=== PATIENT | male | born 1945 | race Caucasian/White ===

== ENCOUNTER 2019-09-02 17:45 | Emergency (ER) | payer MEDICARE, OTHER, SELFPAY ==
[2019-09-02 17:48] VITALS: BP 133/85; PULSE 71; RESP 18; O2SAT 98; BMI 29.0
--- NOTE | 2019-09-02 17:58 | ED_ITS ---
Entered by Ilya Patel, acting as scribe for Faisal Peña DO HPI - Extremity Problem General: Chief complaint: Extremity Injury, Upper Stated complaint: LEFT RING FINGER ABNORMALITY/BREAK Time Seen by Provider: 09/02/19 17:57 History of Present Illness: HPI Narrative: 74 yo male presents with right fourth finger injury. Pt states that he fell down. Pt states that he hit his left knee. MD Complaint: extremity pain, extremity swelling and joint paint Onset (ago): hour(s) Pain Consistency: constant Location: right (right ring finger) Quality: sharp Relieving factors: nothing Associated symptoms: Reports no associated symptoms; Deny chest pain, fever(s) or rash Review of Systems Const: Denies: fever, chills, body aches, fatigue, malaise or night sweats Eyes: Denies: change in vision or blurry vision ENMT: Denies: throat pain, oral sores/lesions, dental pain, nasal discharge or nasal congestion Card: Denies: chest pain, palpitations, irregular heart rhythm, edema, syncope, shortness of breath on exertion, shortness of breath when lying down or leg pain with exertion Resp: Denies: shortness of breath, productive cough, non-productive cough or wheezing GI: Denies: abdominal pain, nausea, vomiting, vomiting blood, coffee grounds in vomit, difficulty swallowing, heartburn/indigestion, diarrhea, constipation, cramping, blood in stool or black tarry stool : Denies: flank pain, difficulty urinating, painful urination, urinary frequency, urinary urgency, urinary incontinence or blood in urine Musc: Denies: neck pain, back pain, extremity pain, extremity swelling, joint pain or joint swelling Skin/Breast: Denies: rash, itching or redness Neuro: Denies: headache, numbness in extremities, weakness in extremities, changes in sensation, lack of coordination, difficulty walking, frequent falls, dizziness, vertigo or confusion Psych: Denies: anxiety, depression, loss of interest, visual hallucinations, auditory hallucinations, suicidal ideation or homicidal ideation Endo: Denies: excessive urination, excessive thirst, tired all the time or cold intolerance Benedicto/Lymph: Denies: easy bruising, easy bleeding, petechiae, enlarged lymph nodes or tender lymph nodes PFS ED PFSH: Medical History Depression Emphysema/COPD Hyperlipidemia Hypertension Myalgia Osteoporosis Urinary retention Surgical History History of adenoidectomy Hx of tonsillectomy Social History Smoking and tobacco status: former smoker Physical Exam Const: COMMON NORMALS: average body habitus, oriented x3 and alert GENERAL APPEARANCE: cooperative, comfortable, well kempt and well developed NUTRITIONAL APPEARANCE: not obese ORIENTATION/CONSCIOUSNESS: Yes awake, Yes oriented to person and Yes oriented to place HENMT: COMMON NORMALS: normocephalic, head/scalp atraumatic, EAC's normal, TM's normal bilaterally, external nose normal, moist oral mucous membranes and oropharynx normal HEAD & SCALP: normocephalic and atraumatic NOSE: external nose normal EXTERNAL AUDITORY CANAL: EAC's normal TYMPANIC MEMBRANE: TM's normal bilaterally MOUTH: oral and palatal mucosa normal, lip normal and tongue normal THROAT: posterior oropharynx normal and tonsils normal Eye: COMMON NORMALS: PERRL, EOMs intact bilaterally, conjunctivae normal and no scleral icterus CONJUNCTIVA: Yes conjunctivae normal PUPIL: Yes PERRL Neck/C-Spine: COMMON NORMALS: full ROM, no lymphadenopathy, supple, no meningeal signs and thyroid normal THYROID: thyroid normal and asymmetrical Lymph: LYMPHATIC: no lymphadenopathy noted Resp: COMMON NORMALS: normal respiratory effort, no retractions, no use of accessory muscles and clear to auscultation bilaterally AUSCULTATION: clear to auscultation bilaterally Cardio: COMMON NORMALS: regular rate and regular rhythm RATE: regular rate RHYTHM: regular rhythm HEART SOUNDS: no murmurs GI: COMMON NORMALS: normal to inspection, nondistended, normoactive bowel sounds, soft to palpation and no hepatosplenomegaly PALPATION: Yes soft and Yes no hepatosplenomegaly : COMMON NORMALS: Yes no CVA tenderness BLADDER/KIDNEY EXAM: Yes no CVA tenderness Back/Pelvis: COMMON NORMALS: no CVA tenderness LUMBAR SPINE/LOWER BACK: Yes normal to inspection Extremity: OTHER: Deformity the right fourth finger consistent with disl ocation. Finger relocated x-ray shows no acute fracture. Fingers teressa taped to the third finger. Neuro: COMMON NORMALS: oriented x3 SENSORIUM/ORIENTATION: Yes alert, Yes oriented to person and Yes oriented to place MENINGEAL SIGNS: Yes no meningeal signs Psych: APPEARANCE: Yes well kempt Skin: COMMON NORMALS: no rashes or lesions noted and skin turgor normal GENERAL SKIN EXAM: no rashes or lesions noted and turgor normal Procedures Orthopedic Joint Reduction Joint #1: Time Out Performed: Yes Side: left Joint Reduction Location: finger (Left fourth finger) Technique used: direct manipulation Post-reduction neuro exam: intact Post-reduction vascular: intact Post Reduction X-Ray Obtained: Yes Post Reduction X-Ray Results: reduced Additional Comments: Teressa tape third and fourth fingers together. Course ED course: Finger reduced at the bedside with no difficulty. Patient given medications to return home but have teressa tape fingers the next days follow-up with his primary care doctor next week return if has problems. Primary care can refer to Ortho if patient has difficulty or persistent weakness. Vital Signs: Vital signs: Vital Signs Pulse Rate 71 09/02/19 17:48 Respiratory Rate 18 09/02/19 17:48 Blood Pressure 133/85 09/02/19 17:48 Pulse Oximetry 98 09/02/19 17:48 Discharge Plan Discharge Patient Disposition: Home, Self-Care Clinical Impression: Dislocation of finger Qualifiers: Encounter type: initial encounter Qualified Code(s): S63.259A - Unspecified dislocation of unspecified finger, initial encounter Condition: Stable Prescriptions: New diclofenac sodium 75 mg tablet,delayed release (DR/EC) 75 mg PO Q12H PRN (Reason: pain) Qty: 20 RF: 0 [place] 5-325 mg tablet 1 tab PO Q6H PRN (Reason: pain) Qty: 10 RF: 0 Discharge Orders: Discharge Order (Routine); Ordered 09/02/19 Ordered By: Faisal Peña Referrals: Bri Leon ARNP [Primary Care Provider] - Discharge Diet: Usual diet Discharge Activity: Resume usual activity Activity Restrictions/Additional Instructions: Teressa tape fingers follow-up with your primary care doctor in the next week Discharge Date/Time: 09/02/19 18:51 Coding Level of Care Code ED Video Tape Transferrer for Chg Fwd Exam Comprehensive The documentation recorded by the Jorge burrell Kialy, accurately reflects the service I personally performed and the decisions made by , Faisal Peña DO Sep 02, 2019 17:45
--- NOTE | 2019-09-02 18:14 | XR_ITS ---
WS: [id number] 3 views of the left fourth finger, 09/02/2019 Clinical Data: postreduction L 4th finger Comparison: None. Findings: No fractures or dislocations are seen. The soft tissues are normal. There is minimal periarticular ca lcification about the first IP joint. There is a small cyst of the head of the left fifth proximal ph alanx. Otherwise the joint spaces are not remarkable.. XR/XR finger LT min 2V [id number] Impression: Negative left fourth finger.
[2019-09-02] MEDS: HYDROcodone-acetaminophen 5-325 mg Tablet 1 TAB PO (18:34)
== END 2019-09-02 18:51 | disposition home or self-care (01) ==
PROVIDERS: Emergency Provider Family Medicine; Family Provider Nurse Practitioner Family; PCP Nurse Practitioner Family
DX: S63.255A Unspecified dislocation of left ring finger, initial encounter (principal); J43.9 Emphysema, unspecified; E78.5 Hyperlipidemia, unspecified; I10 Essential (primary) hypertension; W19.XXXA Unspecified fall, initial encounter
CPT/HCPCS: 26770; 73140; 99281; 99283

== ENCOUNTER 2021-07-10 12:59 | Outpatient (CLI) | payer MEDICARE, OTHER, SELFPAY ==
--- NOTE | 2021-07-10 | CT_ITS ---
WS: [id number] CT ABDOMEN PELVIS TECHNIQUE: Noncontrast CT of the abdomen and pelvis with coronal and sagittal reformatted images. CLINICAL INFORMATION: RIGHT KIDNEY PAIN COMPARISON: January 15, 2018 DLP: 1040.[address] scans at [facility] use at least one of these dose optimization techniques: automated e xposure control; mA and/or kV adjustment per patient size (includes targeted exams where dose is matc hed to clinical indication); or iterative reconstruction. FINDINGS: Mild hepatomegaly. Tiny hepatic cysts. Normal gallbladder. Fatty atrophy of the pancreas. Lung bases are well aerated. Normal GE junction. Normal noncontrast spleen. Adrenal glands are normal. No hydron ephrosis in either kidney. Mild bilateral perinephric edema can be seen with renal insufficiency. No obstructing renal or ureteral calculi. Normal caliber abdominal aorta. Mild aortic calcification. Enlarged calcified prostate measuring 3.4 x 4.3 CM. Pelvic phleboliths. Sigmoid diverticulosis. No evidence of acute diverticulitis. Tiny fat-c ontaining umbilical hernia. No free fluid in the abdomen or pelvis. Slight anterolisthesis L3 on L4. Disc space narrowing worse L4-5. CT/CT abdomen pelvis wo con [id number] IMPRESSION: 1. No hydronephrosis in either kidney. 2. No obstructing renal or ureteral calculi. 3. Normal caliber abdominal aorta. 4. No abdominal or pelvic lymphadenopathy. 5. Tiny fat-containing umbilical hernia. 6. Mild prostate enlargement. Recommend correlation PSA. 7. Sigmoid diverticulosis. No evidence of acute diverticulitis. 8. No other significant findings.
== END 2021-07-10 13:00 | disposition home or self-care (01) ==
PROVIDERS: Family Provider Nurse Practitioner Family; PCP Nurse Practitioner Family; Visit Provider Emergency Medicine Emergency Medical Services
DX: N28.9 Disorder of kidney and ureter, unspecified (principal); K42.9 Umbilical hernia without obstruction or gangrene; N40.0 Benign prostatic hyperplasia without lower urinary tract symptoms; K57.30 Diverticulosis of large intestine without perforation or abscess without bleeding
CPT/HCPCS: 74176

== ENCOUNTER 2021-09-12 16:21 | Outpatient (CLI) | payer MEDICARE, OTHER, SELFPAY ==
--- NOTE | 2021-09-12 | XR_ITS ---
WS: [id number] RIGHT FOOT: 3 VIEW(S) TECHNIQUE: AP, oblique and lateral. HISTORY: PAIN IN RIGHT FOOT COMPARISON: None available. No acute fracture or dislocation. Hammertoe deformities involving the third, fourth and fifth toes. N o erosions. Moderate to severe first metatarsophalangeal joint narrowing with sclerosis. Normal tarsal/metatarsal alignment. No soft tissue abnormality or bone destruction. XR/XR foot RT min 3V* [id number] IMPRESSION: 1. No acute fracture. 2. Mild hammertoe deformities, third through fifth toes. 3. 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
== END 2021-09-12 16:22 | disposition home or self-care (01) ==
PROVIDERS: PCP Nurse Practitioner Family; Visit Provider Nurse Practitioner Family
DX: M20.41 Other hammer toe(s) (acquired), right foot (principal); M13.871 Other specified arthritis, right ankle and foot
CPT/HCPCS: 73630